=== PATIENT | female | born 1940 | race Caucasian/White ===

== ENCOUNTER 2020-08-01 16:04 | Day surgery (SDCO) | payer MEDICARE ==
[~2020-08-01] VITALS: Ht 152.4 cm; Wt 64.0 kg
[~2020-08-01 16:04] MED LIST: ATIVAN0.5 MG PO; BIOTIN1000 MCG PO; CLARITIN10 MG PO; COZAAR50 MG PO; CYCLOBENZAPRINE5 MG PO; DETROL1 MG PO; DIFLUCAN 100MG100 MG PO; FOLIC ACID1 MG PO; GABAPENTIN 100100 MG PO; HUMALOG 75100 UNIT/M SC; HUMULIN R100 UNIT/2 SC; LANTUS **100 UNITS/ SC; LIPITOR10 MG PO; LOPRESSOR25 MG PO; MAXIMUM DAILY1 EAC1 PO; MUCINEX 600MG600 MG PO; NASACORT16.9 ML; NEURONTIN300 MG PO; NORVASC5 MG PO; ONDANSETRON ODT4 MG PO/SL; PATIENT'S OWN MED PO; PRILOSEC20 MG PO; SYNTHROID50 MCG PO; TRAMADOL HCL50 MG PO; ULTRA-LIGHT RO1 EACH XX; VITAMIN B-121000 MC1 PO; VOLTAREN **OUT75 MG PO
[2020-08-01 18:43] LABS: BILIRUBIN NEGATIVE (NEGATIVE); BLOOD 1+ Ery/uL (NEGATIVE); CLARITY CLOUDY (CLEAR); COLOR YELLOW (YELLOW); GLUCOSE (U) 3+ mg/dL (NORMAL); LEUKOCYTES 1+ Leu/uL (NEGATIVE); NITRITE NEGATIVE (NEGATIVE); PROTEIN NEGATIVE (NEGATIVE); UROBILINOGEN 0.2 mg/dL (0.2-1.0); pH 5.5 (5.0-9.0)
[2020-08-01 18:48] LABS: HCT 43.1 % (37.0-47.0); HGB 15.1 g/dl (12.5-16.0); LYMPHOCYTE 15.2 % (15-48); MCH 30.5 pg (25.0-31.0); MCV 87.1 fL (78.0-100.0); MONOCYTE 12.3 % (0-12); NEUTROPHIL 68.1 % (41-80); NRBC 0; PLT 266 K/uL (150-400); RBC 4.95 M/uL (4.20-5.40); RDW 12.5 % (11.5-14.0); WBC 9.3 K/uL (4.0-10.5)
[2020-08-01 18:49] LABS: BACTERIA 3+; URINARY WBC TNTC; YEAST PRESENT
[2020-08-01 19:31] LABS: ALBUMIN 3.5 g/dL (3.4-5.0); BILIRUBIN - TOTAL 0.7 mg/dL (0.2-1.0); BUN/CREAT RATIO (CALC) 24.4 RATIO; CREATININE 1.23 mg/dL (0.51-0.95); GLOBULIN (CALCULATION) 4.3 g/dL; POTASSIUM 4.6 mmol/L (3.5-5.1); TOTAL PROTEIN 7.8 g/dL (6.4-8.2)
[2020-08-02] MEDS ORDERED: DETROL LA4 MG PO (02:07)
[2020-08-02] MEDS ORDERED: EFFEXOR-XR 75 M75 MG PO (02:08)
[2020-08-02] MEDS ORDERED: PRILOSEC20 MG PO (02:08)
[2020-08-02] MEDS ORDERED: CELEXA20 MG PO (02:09)
[2020-08-02] MEDS ORDERED: SYNTHROID50 MCG PO (02:09)
[2020-08-02] MEDS ORDERED: FOLIC ACID1 MG PO (02:09)
[2020-08-02 05:42] LABS: BASOPHIL 1.1 % (0-2); HCT 37.3 % (37.0-47.0); HGB 13.1 g/dl (12.5-16.0); LYMPHOCYTE 25.4 % (15-48); MCHC 35.1 g/dL (32.0-36.0); MCV 88.4 fL (78.0-100.0); MONOCYTE 13.9 % (0-12); NEUTROPHIL 53.9 % (41-80); NRBC 0; PLT 218 K/uL (150-400); RBC 4.22 M/uL (4.20-5.40); RDW 12.3 % (11.5-14.0); WBC 7.6 K/uL (4.0-10.5)
[2020-08-02 06:46] LABS: ALBUMIN 2.7 g/dL (3.4-5.0); BILIRUBIN - TOTAL 0.4 mg/dL (0.2-1.0); BUN/CREAT RATIO (CALC) 24.7 RATIO; CREATININE 0.89 mg/dL (0.51-0.95); GLOBULIN (CALCULATION) 3.6 g/dL; POTASSIUM 4.1 mmol/L (3.5-5.1); TOTAL PROTEIN 6.3 g/dL (6.4-8.2)
[2020-08-03 06:28] LABS: CREATININE 0.87 mg/dL (0.51-0.95); PHOSPHORUS 2.2 mg/dL (2.6-4.7); POTASSIUM 3.8 mmol/L (3.5-5.1)
[2020-08-03 06:31] LABS: MAGNESIUM 1.5 mg/dL (1.8-2.4)
--- NOTE | 2020-08-03 16:16 | NUR ---
08/03/20 Ms. Coy lives alone in a 2 room apartment. She has a rw. 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 [facility] is current and patient would like to continue with their services. A referral was made to [facility] via [email or web address].
[2020-08-04 07:13] LABS: BUN/CREAT RATIO (CALC) 16.7 RATIO; CREATININE 0.78 mg/dL (0.51-0.95); MAGNESIUM 1.7 mg/dL (1.8-2.4); PHOSPHORUS 2.9 mg/dL (2.6-4.7); POTASSIUM 3.6 mmol/L (3.5-5.1)
--- NOTE | 2020-08-04 11:55 | NUR ---
CALL INTREPID AT DISCHARGE
--- NOTE | 2020-08-04 13:30 | NUR ---
[facility]
--- NOTE | 2020-08-04 13:34 | NUR ---
08/04/20 [facility] was notified of discharge. A report was given to [facility] CATHLEEN Santiago.
[2020-08-04] MEDS ORDERED: CEFDINIR300 MG PO (15:06)
[2020-08-04] MEDS ORDERED: DIFLUCAN150 MG PO (15:53)
== END 2020-08-04 16:11 | disposition home health service (06) ==
LOC: FER 16:04 → FMS 22:03
PROVIDERS: Emergency Medicine; Internal Medicine; Nurse Practitioner; ADMIT Allergy & Immunology Allergy
DX: E11.00 Type 2 diabetes mellitus with hyperosmolarity without nonketotic hyperglycemic-hyperosmolar coma (NKHHC) (principal); N30.01 Acute cystitis with hematuria; I10 Essential (primary) hypertension; K21.9 Gastro-esophageal reflux disease without esophagitis; E11.40 Type 2 diabetes mellitus with diabetic neuropathy, unspecified; E78.5 Hyperlipidemia, unspecified; E83.42 Hypomagnesemia; E11.65 Type 2 diabetes mellitus with hyperglycemia; F41.9 Anxiety disorder, unspecified; G93.41 Metabolic encephalopathy; Z82.49 Family history of ischemic heart disease and other diseases of the circulatory system; Z20.822 Contact with and (suspected) exposure to COVID-19; Z79.899 Other long term (current) drug therapy
CPT/HCPCS: 36415; 70450; 80048; 80053; 81001; 83036; 83605; 83735; 84100; 85025; 87040; 87088; 93005; 94010; 94760; 97110; 97162; 97166; 97530-GP; 97535; C9113; G0378; J0696; J1650; J3475; J7030; U0002